=== PATIENT | female | born 1950 | race Caucasian/White ===

== ENCOUNTER 2017-08-25 03:08 | Inpatient (IN) | payer OTHER, MEDICARE ==
[~2017-08-25] VITALS: Ht 165.1 cm; Wt 116.2 kg
[~2017-08-25 03:08] MED LIST: BUSPIRONE HCL10 M1 PO; FLUOXETINE HCL40 M1 PO; PENTASA; REMERON15 M2 PO
[2017-08-25] MEDS ORDERED: TYLENOL WITH C1 EAC1 PO (08:42)
[2017-08-25] MEDS ORDERED: METHSCOPOLAMINE5 MG PO (09:31)
--- NOTE | 2017-08-25 09:36 | Operative Report ---
Operative/Inv Procedure Report Surgery Date: 08/25/17 Name of Procedure: Left total knee arthroplasty Pre-Operative Diagnosis: Left knee primary osteoarthritis Post-Operative Diagnosis: Same Estimated Blood Loss: less than 50ml Surgeon/Litigation Partner: Rodriguez PAL,Tomas Gerardo Anesthesia: block Implants: Perico triathlon total knee systemsize 4 femur, size 4 tibia, 9 mm cruciate retaining polyethylene, 29 patella Drains: None Specimens: Femoral, tibial, patellar bone, meniscal tissues Microbiology: Urine Tourniquet: 53 minutes Complications: None Condition: Stable Operative Indication: Patient is a 67-year-old woman with a long history of gradually worsening left knee symptoms. Symptoms aggravated by activities. Activities of daily living compromised by the left knee pain. Patient had short-term responses to conservative measures. She wished to proceed with total knee arthroplasty after risks, benefits and expectations were discussed which included but were not limited to persistent knee pain, need for subsequent surgery, infection, DVT, injury to blood vessel or nerve and anesthesia risks Operative/Procedure Note Note: Patient was brought to the operating room and transferred to the operating table. Once under appropriate anesthesia the left lower extremity was prepped and draped in standard fashion. Preoperative IV antibiotics were given prophylactically. Leg was elevated exsanguinated and tourniquet was inflated to 300 mm pressure. A standard anterior incision was made for anticipated medial parapatellar approach the knee. Incision was taken down sharply to the underlying retinaculum. A medial parapatellar approach was used. Tricompartmental osteoarthritis was confirmed. Osteophytes were excised. Remnants of the medial lateral meniscal tissues were excised. The knee was flexed with retractors placed medially and laterally. I used the drill to enter the intramedullary canal for the intramedullary guide to the distal femoral cut. Soft tissues were protected throughout the surgery with medial lateral retractors as well as posterior retractors during the knee exposure. The distal femoral cut was made. The femur was measured to a size 4. The anterior, posterior and anterior posterior chamfer cuts were made. I then used the external tibial alignment guide to pin the cutting block in a neutral position from medial to lateral and reproducing patient's posterior slow-paced on preoperative templating and intraoperative measurements. Soft tissues were protected medially laterally and posteriorly using the PCL retractor. Cut was made. The tibia was then sized to a size 4. Trial for tibia and 4 femur were placed with a 9 mm insert. The knee was taken out to full extension. I was satisfied with the soft tissue balancing. I then used 2 towel clips to stabilize the patella. Measured and remove the appropriate thickness and replaced this with the size 29 patella. The 3 lug holes were drilled in standard fashion. The knee was taken through range of motion. No sign of patellofemoral instability. No need for patellar lateral release. All trial components were then removed from the knee. I finished preparation of the tibia with the standard tibial punch for the size 4 tibia. This rotation was based on my addition of my trial which had been marked. Prior to this I drilled the 2 lug holes for the femur. All his rotation was removed from the knee. Copious irrigation the knee followed. I used the anterior chamfer bone from the femur to plug the major medullary hole to minimize postoperative hemarthrosis and swelling. When the cement was ready on the back table it was delivered to the tibia. The size 4 tibia was impacted in place and excess cement was removed with curettes. Cement was applied to the dry clean bony surfaces of the femur. Size 4 femur was impacted in place and excess cement was removed with curettes. Cement was applied to the dry clean bony surfaces of the patella after the trial polyethylene was inserted and the knee was taken out to full extension. Excess cement was removed with knife. During the cement hardening process I did a periarticular pericapsular injection of a cocktail which included ropivacaine with epinephrine and Toradol for postoperative pain and inflammation management. Once the cement hardened the took the knee through range of motion. Small pieces of excess cement removed with osteotome. I was satisfied with the 9 mm insert. I removed the trial polyethylene and copiously irrigated tibial tray. I major there was no remaining soft tissue, bone fragments or cement fragments within the tibial tray and then I impacted the definitive size 9 mm cruciate retaining polyethylene in place. The locking mechanism was confirmed. Again the patellofemoral tracking was checked. I was satisfied. Copious irrigation followed. The tourniquet was deflated at 53 minutes. Hemostasis was obtained. There was no need for a drain. The medial retinacular and minimal extension into the quadriceps was closed with interrupted #1 Vicryl suture. Subcutaneous tissues closed in 2 layers with 2-0 Vicryl and skin was closed with a running 3- 0 Vicryl suture with the knee in flexion. Appropriate just his were applied patient was awakened and taken to recovery room in good condition. No intraoperative complications. Blood loss was less than 50 mL Discharge Disposition: PACU
--- NOTE | 2017-08-25 10:56 | Patient Discharge Instructions ---
Discharge Instructions General Discharge Information You were seen/treated for: Left knee pain related to osteoarthritis You had these procedures: Left total knee replacement Watch for these problems: Increasing pain despite the use of pain medication Increasing redness, warmth or swelling Drainage of any type from incision Inability to bear weight on operative leg Persistent nausea and vomiting Fever greater than 101.5 degrees Other wound care: Please keep wound clean and dry. No ointments or lotions of any type on or near incision. Your dressing will be changed by your nurse on the second day after your surgery. Daily dry dressing changes are recommended each day thereafter. You may shower 48hr after surgery. Do not soak your wound- no tub baths or swimming. Diet Recommended Diet: Regular Activity Activity Limited to: Weight bear as tolerated Additional ACTIVITY Info: Use assistive devices as needed Acute Coronary Syndrome Inclusion Criteria At DC or during hospital stay patient has or had the following: ACS DIAGNOSIS No Discharge Core Measures Meds if any: Prescribed or Continued at Discharge Meds if any: NOT Prescribed or Continued at Discharge Congestive Heart Failure Inclusion Criteria At DC or during hospital stay patient has or had the following: CHF DIAGNOSIS No Discharge Core Measures Meds if any: Prescribed or Continued at Discharge Meds if any: NOT Prescribed or Continued at Discharge Cerebrovascular accident Inclusion Criteria At DC or during hospital stay patient has or had the following: CVA/TIA Diagnosis No Discharge Core Measures Meds if any: Prescribed or Continued at Discharge Meds if any: NOT Prescribed or Continued at Discharge Venous thromboembolism Inclusion Criteria VTE Diagnosis No VTE Type NONE VTE Confirmed by (Test) NONE Discharge Core Measures - Per Current guidelines, there needs to be overlap - treatment for the first 5 days of Warfarin therapy. - If discharged on Warfarin prior to 5 days of - overlap therapy, the patient will need to be - assessed for post discharge needs including - *Post discharge parental anticoagulation - *Warfarin and/or parental anticoagulation education - *Follow up date to check INR post discharge At least 5 days overlap therapy as Inpatient No Meds if any: Prescribed or Continued at Discharge Note: Overlap Therapy is Warfarin and Anticoagulant Meds if any: NOT Prescribed or Continued at Discharge
--- NOTE | 2017-08-25 10:58 | Surg Short-stay <48hrs Dis Sum ---
Visit Information Visit Dates Admission Date: 08/25/17 Discharge Date: 08/27/17 Surgical Short Stay DC Summary Admission Diagnosis: Left knee pain related to primary osteoarthritis Final Diagnosis: Same, status post left total knee replacement Procedure(s): Left total knee replacement Summary/Significant Findings: Patient was admitted to the hospital for an elective total joint replacement. Procedure was tolerated well and patient was transferred to a general surgical floor. Diet was advanced and tolerated. Physical therapy performed evaluation and treatment. At time of hospital discharge, vital signs were stable, neurovascular status was intact, and pain was controlled with the use of oral pain medications. Condition at Discharge: Stable Discharge Disposition: home health services Discharge instructions provided to patient/family: Yes Post discharge follow-up plan: Call to be seen in the office in 2 weeks Copies to: Akin Frias MD
[2017-08-25 14:00] VITALS: BP 126/52
--- NOTE | 2017-08-25 14:33 | PN- Orthopedic ---
Subjective Subjective: No acute post operative events reported. Pt received on general surgical floor in good spirits. Denies pain to operative leg. Denies chest pain, shortness of breath and difficulty breathing. Denies nausea and vomitting. Has yet to ambulate. Has tripp catheter in place. Objective Vital Signs and I&Os Vital Signs Date Time Temp Pulse Resp B/P B/P Pulse O2 O2 Flow FiO2 Mean Ox Delivery Rate 08/25 1400 94 Nasal 2.0L Cannula 08/25 1400 98.1 84 16 126/52 95 Nasal 2.0L Cannula Intake & Output 08/25 1600 08/25 0800 08/25 0000 08/24 1600 08/24 0800 08/24 0000 Intake Total Output Total Balance Patient 249 lb Weight Weight Bed scale Measurement Method Physical Exam: General: Alert and oriented x3, no acute distress Cardiac: RRR, s1s2 Pulm: CTA bilaterally, non-labored respiratory effort Abd: Non-tender, non-distended Extremities: Moves all extremities, distal sensation grossly intact. Skin warm and well perfused. DP pulses palpable bialterally. Bilateral calves soft and non-tender Surgical site: left knee. Dressing dry and intact. No on Q. No drain Assessment/Plan Assessment/Plan This is a 67 year old female, POD 0, s/p L TKR -Vanc IV x 1 additional dose for abx ppx -ALPS for mechanical dvt ppx now -Eliquis 2.5 bid to start tomorrow am for dvt ppx -Activity: OOB, wbat -Diet: Regular, advance as tolerated -Dressing: Keep dry, change POD 2 by surgical pa -Bowel regimen, scheduled -Dispo planning: home with [facility] on POD 1 or [address] Will discuss poc with Dr. Frias Core Measures Venous Thromboembolism VTE Risk Factors Surgery No Mechanical VTE Prophylaxis d/t N/A MechProphylax Ordered No VTE Pharm Prophylaxis d/t NA PharmProphylax ordered
[2017-08-25 15:58] VITALS: BP 140/70
[2017-08-25 18:12] VITALS: BP 130/68
[2017-08-25 20:07] VITALS: BP 122/69
[2017-08-25 23:25] VITALS: BP 123/71
[2017-08-26 07:18] VITALS: BP 142/69
--- NOTE | 2017-08-26 07:34 | PN- Orthopedic ---
See Addendum Subjective Subjective: No acute events overnight, patient comfortable, pain is controlled Objective Vital Signs and I&Os Vital Signs Date Time Temp Pulse Resp B/P B/P Pulse O2 O2 Flow FiO2 Mean Ox Delivery Rate 08/26 0718 97.6 76 20 142/69 99 Room Air 08/25 2325 98.5 79 20 123/71 97 Room Air 08/25 2006 98.6 95 20 122/69 91 Room Air 08/25 1934 Room Air 08/25 1812 97.2 90 18 130/68 93 08/25 1558 98.8 90 18 140/70 95 08/25 1400 94 Nasal 2.0L Cannula 08/25 1400 98.1 84 16 126/52 94 Nasal 2.0L Cannula 08/25 1400 98.1 84 16 126/52 95 Nasal 2.0L Cannula Intake & Output 08/26 0800 08/26 0000 08/25 1600 08/25 0800 08/25 0000 08/24 1600 Intake Total 1440 465 480 Output Total 200 Balance 1440 265 480 Intake, IV 1200 225 Intake, Oral 240 240 480 Output, Urine 200 Patient 249 lb Weight Weight Bed scale Measurement Method Physical Exam: Well-developed well-nourished no apparent distress. HEENT: Atraumatic, extraocular motion intact Neck: Supple, no lymphadenopathy Respiratory: No respiratory distress Extremities: No edema Left lower extremity dressing in place, dressing clean dry and intact Range of motion 0-[address] in place Neurovascularly intact distally Bilateral calves are supple, nontender. Neuro: Alert and oriented x3 Psych: Mood affect normal, normal memory normal judgment. Skin: Warm and dry, no rash on exposed skin Assessment/Plan Assessment/Plan Postop day #1 status post left total knee arthroplasty Perioperative antibiotics. Pain medication as needed. Out of bed Physical therapy, weightbearing as tolerated DC IV fluids DC Moses catheter Regular diet Follow a.m. labs Eliquis for DVT prophylaxis ALPS for DVT prophylaxis Regular home meds Dressing change postop day 2 Patient expressed interest in being discharged home today, we will see how she does with therapy before deciding on discharge today versus tomorrow Core Measures Venous Thromboembolism VTE Risk Factors Surgery No Mechanical VTE Prophylaxis d/t N/A MechProphylax Ordered No VTE Pharm Prophylaxis d/t NA PharmProphylax ordered
[2017-08-26 08:45] LABS: ABSOLUTE BASOPHIL COUNT 0 /CUMM (0.0-0.2); ABSOLUTE EOSINOPHIL COUNT 0 /CUMM (0.0-0.7); ABSOLUTE GRANULOCYTE CT 8.9 /CUMM (1.4-6.5); ABSOLUTE LYMPH COUNT 1.4 /CUMM (1.2-3.4); ABSOLUTE MONOCYTE COUNT 0.9 /CUMM (0.10-0.60); BASOPHIL % 0.3 % (0.0-2.0); EOSINOPHIL % 0 % (0-5); GRANULOCYTE % 79.4 % (42.2-75.2); HEMATOCRIT 28.4 % (37-47); MEAN CORPUSCULAR HGB 30.7 PG (27.0-31.0); MEAN CORPUSCULAR HGB CONC 33.8 G/DL (33.0-37.0); MEAN CORPUSCULAR VOLUME 90.8 FL (81.0-99.0); MEAN PLATELET VOLUME 6.4 FL (7.4-10.4); PLATELET COUNT 263 /CUMM (130-400); RBC DISTRIBUTION WIDTH 13.8 % (11.5-14.5); RED BLOOD CELL CT 3.13 /CUMM (4.20-5.40); WHITE BLOOD CELL COUNT 11.2 /CUMM (4.8-10.8)
[2017-08-26 11:40] VITALS: BP 130/60
[2017-08-26 15:23] VITALS: BP 124/60
[2017-08-26 21:04] VITALS: BP 113/56
[2017-08-27 05:45] VITALS: BP 138/62
--- NOTE | 2017-08-27 08:25 | PN- Orthopedic ---
Subjective Subjective: pod#2 s/p left tka no major issues overnight denies cp, sob, on n+v with diet ambulaitng well with pt voiding independently Objective Vital Signs and I&Os Vital Signs Date Time Temp Pulse Resp B/P B/P Pulse O2 O2 Flow FiO2 Mean Ox Delivery Rate 08/27 0545 98.2 81 20 138/62 96 Room Air 08/26 2104 97.8 74 18 113/56 95 08/26 1523 98.9 76 18 124/60 95 08/26 1140 99.0 69 20 130/60 98 Room Air Intake & Output 08/27 1600 08/27 0800 08/27 0000 08/26 1600 08/26 0800 08/26 0000 Intake Total 60 866 787 0268 465 Output Total 450 100 250 650 200 Balance -390 620 150 790 265 Intake, IV 0 1200 225 Intake, Oral 60 720 400 240 240 Number 0 Bowel Movements Output, Urine 450 100 250 650 200 Patient 256 lb Weight Weight Bed scale Measurement Method Physical Exam: cv: rrr lungs: clear abd: soft, +bs ext: drsg changed, wound c/d/i no calf tenderness bilat dist cms intact Assessment/Plan Assessment/Plan ortho stable plan cont curent regime home d/c planning later today Core Measures Venous Thromboembolism VTE Risk Factors Surgery No Mechanical VTE Prophylaxis d/t N/A MechProphylax Ordered No VTE Pharm Prophylaxis d/t NA PharmProphylax ordered
[2017-08-27] MEDS ORDERED: ELIQUIS2.5 M1 PO (08:31)
[2017-08-27] MEDS ORDERED: PERCOCET 5-3251 EACH PO (08:31)
[2017-08-27] MEDS ORDERED: CELEBREX200 M1 PO (08:31)
[2017-08-27] MEDS ORDERED: MIRALAX119 GM PO (08:34)
[2017-08-27] MEDS ORDERED: DOCUSATE SODIU100 M3 PO (08:34)
--- NOTE | 2017-08-27 10:01 | RADIOLOGY REPORT ---
EXAMINATION: XR KNEE, LEFT CLINICAL INFORMATION: Status post total knee replacement COMPARISON: None TECHNIQUE: AP and lateral views of the left knee. FINDINGS: The components of the total knee arthroplasty are in their expected positions. Alignment is anatomic at patellofemoral and tibiofemoral compartments. No acute periprosthetic fracture. Postoperative knee joint effusion and mild soft tissue swelling around the knee. Obese body habitus. IMPRESSION: Satisfactory position and alignment of components of the total knee arthroplasty.
== END 2017-08-27 13:05 | disposition home health service (06) | DRG 470 ==
LOC: SDA 03:08 → ENRESERV 12:19 → ENTRNSPT 13:22 → EDTRNSPTSTS 13:32 → EDTRNSPT 13:32 → 2NB 13:40 → CMPTRNSPT 13:55 → ENPENDDIS 08-27 12:24 → ENTRNSPT 08-27 12:51 → EDTRNSPTSTS 08-27 12:58 → EDTRNSPT 08-27 12:58 → 2NB 08-27 13:05 → CMPTRNSPT 08-27 13:06
PROVIDERS: Physician Assistant Surgical
PROC: 0SRD069 Replacement of Left Knee Joint with Oxidized Zirconium on Polyethylene Synthetic Substitute, Cemented, Open Approach (ICD-10-PCS; principal; 2017-08-25)
PROC: 3E0T3BZ Introduction of Anesthetic Agent into Peripheral Nerves and Plexi, Percutaneous Approach (ICD-10-PCS; 2017-08-25)
DX: M17.12 Unilateral primary osteoarthritis, left knee (principal); E66.01 Morbid (severe) obesity due to excess calories; Z68.41 Body mass index [BMI] 40.0-44.9, adult; F32.9 Major depressive disorder, single episode, unspecified; F41.9 Anxiety disorder, unspecified
CPT/HCPCS: 2NBP; 36415; 36592; 73560-LT; 82436; 87086; 97110-GO; 97116-GO; 97161-GP; 97530-GO; C1713; C9290; J0171; J1100; J1200; J1885; J2405; J2795; J3370; J7040